=== PATIENT | male | born 1950 | race Caucasian/White ===

== ENCOUNTER 2020-01-07 21:02 | Inpatient (IN) | payer MEDICARE, BC ==
[~2020-01-07] VITALS: Ht 180.3 cm; Wt 81.8 kg
[2020-01-07 21:47] LABS: CLARITY,URINE CLEAR (Clear); COLOR,URINE YELLOW (Yellow); GLUCOSE, URINE NEGATIVE (Neg); KETONES,URINE 40 mg/dl (Neg); LEUKOCYTE ESTERASE ,URINE NEGATIVE (Neg); NITRITES, URINE NEGATIVE (Neg); OCCULT BLOOD,URINE NEGATIVE (Neg); PROTEIN,URINE NEGATIVE (Neg); UROBILINOGEN,URINE 0.2 E.U/dL (0.2-1.0)
[2020-01-07 21:53] LABS: UA COLLECTION TYPE CLN CATCH MIDSTREAM
[2020-01-07 22:15] LABS: BASOPHILS # (AUTO) 0.1 X10'3 (0-0.2); BASOPHILS % (AUTO) 0.3 % (0-1); EOSINOPHILS % (AUTO) 0.1 % (0-6); HEMATOCRIT 47.3 % (42.0-52.0); LYMPHOCYTES # (AUTO) 1.7 X10'3 (1.1-4.8); LYMPHOCYTES % (AUTO) 10.8 % (21-51); MEAN CORPUSCULAR HEMOGLOBIN 32.3 PG (27.0-31.0); MEAN CORPUSCULAR HGB CONC 33.9 g/dL (33.0-36.5); MEAN CORPUSCULAR VOLUME 95.3 FL (78-98); MEAN PLATELET VOLUME 7.8 FL (7.4-10.4); MONOCYTES # (AUTO) 0.7 X10'3 (0-0.9); MONOCYTES % (AUTO) 4.2 % (2-12); NEUTROPHILS # (AUTO) 13.2 X10'3 (1.8-7.7); NEUTROPHILS % (AUTO) 84.6 % (42-75); PLATELET COUNT 244 X10'3 (140-440); RED BLOOD COUNT 4.96 X10'6 (4.70-6.10); RED CELL DISTRIBUTION WIDTH 14.7 % (11.5-14.5); WHITE BLOOD COUNT 15.6 X10'3 (4.5-11.0)
[2020-01-07 22:31] LABS: ALANINE AMINOTRANSFERASE 24 U/L (12-78); ALBUMIN 4.5 G/DL (3.4-5.0); ALBUMIN/GLOBULIN RATIO 1.3 (1.1-1.5); ALKALINE PHOSPHATASE 70 IU/L (46-116); ANION GAP 7 (8-16); ASPARTATE AMINO TRANSFERASE 21 U/L (10-37); BLOOD UREA NITROGEN 12 MG/DL (7-18); BUN/CREATININE RATIO 9.5 (5.4-32.0); CALCIUM 9.8 MG/DL (8.5-10.1); CHLORIDE 102 MMOL/L (99-107); CREATININE 1.26 MG/DL (0.60-1.10); GLUCOSE 128 MG/DL (70-104); LIPASE 210 U/L (73-393); POTASSIUM 3.9 MMOL/L (3.5-5.1); SODIUM 139 MMOL/L (135-145); TOTAL CARBON DIOXIDE 30.3 MMOL/L (24-32); TOTAL PROTEIN 8.1 G/DL (6.4-8.2); eGFR 57 ML/MIN
--- NOTE | 2020-01-08 00:05 | NUR ---
Ultrasound at bedside
[2020-01-08] MEDS ORDERED: ondansetron/PF 4mg/2ml inj IV ONE (00:30)
[2020-01-08] MEDS ORDERED: normal saline 1000ML IV soln IVB ONE (00:30)
[2020-01-08] MEDS: morphine 4 MG/ML inj SYRINge IV PRN ×3 (00:46→06:05)
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
[2020-01-08] MEDS ORDERED: FOLI0.4T14 PO (02:34)
[2020-01-08] MEDS ORDERED: TRAM50TA2 PO (02:34)
[2020-01-08] MEDS ORDERED: DOCU-148 PO (02:34)
[2020-01-08] MEDS ORDERED: METH2.5T PO (02:34)
[2020-01-08] MEDS ORDERED: LEVO75TA56 PO (02:34)
[2020-01-08] MEDS ORDERED: PLEC3TAB PO (02:34)
[2020-01-08] MEDS ORDERED: GOLI50PE (02:34)
[2020-01-08] MEDS ORDERED: VALA500T41 PO (02:34)
[2020-01-08] MEDS ORDERED: PSYL575P22 PO (02:34)
--- NOTE | 2020-01-08 02:36 | NUR ---
DR. ALICEA TALKING WITH PT ABOUT PLAN FOR ADMISSION. PT HAS SBO. DR. WESTON NOW AT BEDSIDE.
[2020-01-08] MEDS ORDERED: morphine 2 MG/ML inj. syringe IV PRN (02:55)
[2020-01-08] MEDS ORDERED: magnesium hydroxide 30ml (MOM) UD suspension PO PRN (02:55)
[2020-01-08] MEDS ORDERED: HYDROcodone/acetaminophen 10/325mg tab PO PRN (02:55)
[2020-01-08] MEDS ORDERED: HYDROcodone/acetaminophen 5mg/325mg tablet PO PRN (02:55)
[2020-01-08] MEDS ORDERED: acetaminophen 325mg tablet PO PRN (02:55)
[2020-01-08] MEDS ORDERED: mag hydrox/Alum hydrox/simeth 30ml oral suspension PO PRN (02:55)
[2020-01-08] MEDS: normal saline 1000ml 1,000 ML IV SCH ×2 (03:18→13:50)
--- NOTE | 2020-01-08 03:28 | NUR ---
18 F NG TUBE PLACED TO LEFT NARE. 400 CC' BROWN WATERY OUTPUT. PT AWAITING IPA. STABLE VS.
--- NOTE | 2020-01-08 04:56 | NUR ---
PLACED ON HOSPITAL BED. AWAITING IPA. VSS. PT JUST UP TO BR TO VOIDE. STEADY GAIT. PT WILL BRING HIM A BAG OF PERSONAL ITEMS IN AM. PAIN IS MINIMAL AND PT REPROTS NO NEED FOR ANY PAIN MEDS.
[2020-01-08] MEDS: ondansetron/PF 4mg/2ml inj IV PRN ×2 (06:05→13:44)
--- NOTE | 2020-01-08 07:19 | NUR ---
RECEIVED REPORT FROM ER
[2020-01-08 07:57] VITALS: BP 128/77
[2020-01-08] MEDS: morphine 2 MG/ML inj. syringe IV PRN ×3 (09:52→17:45)
[2020-01-08 10:00] VITALS: BP 125/76
--- NOTE | 2020-01-08 17:13 | NUR ---
dr castro changed pt ng tube suction from low intermit suction to continuous suction at 80, continue to monitor
[2020-01-08 18:00] VITALS: BP 122/82
--- NOTE | 2020-01-08 18:32 | NUR ---
gave report to margaret silver
[2020-01-08] MEDS: diatr meglu/diatrizoate 30ml oral sol.-(3 dose) bottle PO SCH (21:33)
[2020-01-08 22:00] VITALS: BP 126/79
[2020-01-09] MEDS: normal saline 1000ml 1,000 ML IV SCH ×3 (00:20→20:00)
[2020-01-09 06:00] VITALS: BP 128/79
[2020-01-09] MEDS ORDERED: famotidine/PF 10 mg/ml inj IV ONE (06:00)
[2020-01-09] MEDS ORDERED: ringers solution, lacted 1,000 ML IV ONE (06:00)
[2020-01-09 06:28] LABS: BASOPHILS # (AUTO) 0.1 X10'3 (0-0.2); BASOPHILS % (AUTO) 0.9 % (0-1); EOSINOPHILS # (AUTO) 0.2 X10'3 (0-0.9); EOSINOPHILS % (AUTO) 2.2 % (0-6); HEMATOCRIT 42.1 % (42.0-52.0); HEMOGLOBIN 14.4 g/dl (14.0-17.9); LYMPHOCYTES # (AUTO) 1.5 X10'3 (1.1-4.8); LYMPHOCYTES % (AUTO) 16.1 % (21-51); MEAN CORPUSCULAR HGB CONC 34.3 g/dL (33.0-36.5); MEAN CORPUSCULAR VOLUME 96.2 FL (78-98); MEAN PLATELET VOLUME 7.9 FL (7.4-10.4); MONOCYTES # (AUTO) 0.7 X10'3 (0-0.9); MONOCYTES % (AUTO) 7.4 % (2-12); NEUTROPHILS # (AUTO) 6.9 X10'3 (1.8-7.7); NEUTROPHILS % (AUTO) 73.4 % (42-75); PLATELET COUNT 191 X10'3 (140-440); RED BLOOD COUNT 4.38 X10'6 (4.70-6.10); RED CELL DISTRIBUTION WIDTH 14.5 % (11.5-14.5); WHITE BLOOD COUNT 9.3 X10'3 (4.5-11.0)
--- NOTE | 2020-01-09 06:30 | NUR ---
Problems reprioritized. Patient report given, questions answered & plan of care reviewed with Jacob STOVER.
--- NOTE | 2020-01-09 06:40 | NUR ---
Patient in room ORTHO 4007. I have received report from Jaylin and had the opportunity to ask questions and assume patient care.
[2020-01-09 06:46] LABS: ALBUMIN 3.6 G/DL (3.4-5.0); ANION GAP 8 (8-16); BLOOD UREA NITROGEN 10 MG/DL (7-18); BUN/CREATININE RATIO 8.8 (5.4-32.0); CALCIUM 8.5 MG/DL (8.5-10.1); CHLORIDE 107 MMOL/L (99-107); CREATININE 1.14 MG/DL (0.60-1.10); GLUCOSE 90 MG/DL (70-104); POTASSIUM 3.5 MMOL/L (3.5-5.1); SODIUM 143 MMOL/L (135-145); TOTAL CARBON DIOXIDE 28.5 MMOL/L (24-32); eGFR 64 ML/MIN
[2020-01-09] MEDS ORDERED: diatrozoate meglu/diatrozoate sod (37% iodine) 120ML oral solution PO STA (06:57)
[2020-01-09] MEDS ORDERED: diatr meglu/diatrizoate 30ml oral sol.-(3 dose) bottle PO STA (07:02)
[2020-01-09] MEDS: diatr meglu/diatrizoate 30ml oral sol.-(3 dose) bottle PO SCH ×2 (07:16→21:00)
[2020-01-09 10:00] VITALS: BP 130/65
[2020-01-09 10:01] LABS: PARTIAL THROMBOPLASTIN TIME 28 SECONDS (22-32)
[2020-01-09] MEDS ORDERED: iohexol 300mg/ml 100ml inj. ONE (12:51)
[2020-01-09] MEDS: acetaminophen 325mg tablet PO PRN ×2 (13:51→19:56)
--- NOTE | 2020-01-09 14:25 | NUR ---
DC NG tube. patient tolerated removal well.
--- NOTE | 2020-01-09 18:30 | NUR ---
Problems reprioritized. Patient report given, questions answered & plan of care reviewed with Cinthia.
[2020-01-09 19:00] VITALS: BP 113/66
[2020-01-09] MEDS: pantoprazole 40mg Tablet.DR PO SCH (19:53)
[2020-01-10] VITALS: BP 116/74
[2020-01-10] MEDS: normal saline 1000ml 1,000 ML IV SCH (05:42)
[2020-01-10 06:00] VITALS: BP 112/68
--- NOTE | 2020-01-10 06:46 | NUR ---
Patient in room ORTHO 4008. I have received report from [employer] and had the opportunity to ask questions and assume patient care.
[2020-01-10 06:55] LABS: BASOPHILS % (AUTO) 0.8 % (0-1); EOSINOPHILS # (AUTO) 0.2 X10'3 (0-0.9); EOSINOPHILS % (AUTO) 3.1 % (0-6); HEMATOCRIT 38.8 % (42.0-52.0); HEMOGLOBIN 13.3 g/dl (14.0-17.9); LYMPHOCYTES # (AUTO) 1.6 X10'3 (1.1-4.8); LYMPHOCYTES % (AUTO) 28.6 % (21-51); MEAN CORPUSCULAR HEMOGLOBIN 32.5 PG (27.0-31.0); MEAN CORPUSCULAR HGB CONC 34.2 g/dL (33.0-36.5); MEAN CORPUSCULAR VOLUME 95.1 FL (78-98); MEAN PLATELET VOLUME 7.9 FL (7.4-10.4); MONOCYTES # (AUTO) 0.5 X10'3 (0-0.9); NEUTROPHILS # (AUTO) 3.2 X10'3 (1.8-7.7); NEUTROPHILS % (AUTO) 58.5 % (42-75); PLATELET COUNT 170 X10'3 (140-440); RED BLOOD COUNT 4.08 X10'6 (4.70-6.10); RED CELL DISTRIBUTION WIDTH 14.9 % (11.5-14.5); WHITE BLOOD COUNT 5.4 X10'3 (4.5-11.0)
[2020-01-10 06:59] LABS: ALBUMIN 3.5 G/DL (3.4-5.0); ANION GAP 6 (8-16); BLOOD UREA NITROGEN 6 MG/DL (7-18); BUN/CREATININE RATIO 6.4 (5.4-32.0); CALCIUM 8.5 MG/DL (8.5-10.1); CHLORIDE 109 MMOL/L (99-107); CREATININE 0.94 MG/DL (0.60-1.10); GLUCOSE 85 MG/DL (70-104); POTASSIUM 3.8 MMOL/L (3.5-5.1); SODIUM 143 MMOL/L (135-145); TOTAL CARBON DIOXIDE 28.4 MMOL/L (24-32); eGFR 80 ML/MIN
[2020-01-10] MEDS: pantoprazole 40mg Tablet.DR PO SCH (07:39)
[2020-01-10 10:00] VITALS: BP 107/62
[2020-01-10 10:27] LABS: CANCER ANTIGEN 125 14.8 U/mL (Not Estab.); CARCINOEMBRYONIC ANTIGEN 1.3 ng/mL (0.0-4.7)
[2020-01-10] MEDS ORDERED: PANT-47 PO (12:55)
--- NOTE | 2020-01-10 13:40 | NUR ---
Safe DC. All personal items with patient. Educted patient on new medications and follow up with his doctors.
--- NOTE | 2020-01-13 15:33 | NUR ---
Case Management DC follow up: spoke to pt via telephone. s/p: sbo Reports: "feeling pretty much normal". BM 01/12/20not as narrow, formed, no pain. Continues low residual diet. Denies: acute/continuous CP, emergent SOB, resp distress, N/V, RIVAS, blurry vision, vertigo, syncope episodes, weakness,emergent general pain, abd tenderness/distension, bladder pain, dysuria, polyuria, hematuria, retention, constipation, diarrhea, fever, unexplained bleeding, bruising. Pt stated [facility], "without hesitation, the finest people in any, all departments during my stay; outstanding, nothing more I could have expected, great people. Jacob, RN, Saadia, RN, Khushboo, great people. Pt was emotional when relaying that his of 40 yrs stood outside pt window holding up signs of encouragement, and Dr Chairez came in and walked right to the window looking for her. pt was beyond happy with care received. Verbalizes understanding of s/s that warrant 9-11/ER visit for further evaluation. Verbalizes understanding of new Rx: Protonix, and why prescribed, resumes current Rx, taking as ordered, no ase r/t polypharmacy. Acknowledges need to schedule/keep follow up appts w/ PCPT [facility] 01/20/20. Pt contacted Dr Crespo office weeks ago as PCP referred pt for EGD, Colonoscopy before pt admitted to [facility] for sbo. Pt thought the procedure would have been complete before scheduled follow up w/PCP. Pt is not happy w/Dr Crespo staff not returning calls. Pt will make another attempt today, along w/contacting PCP to update frustrations to not getting call backs to schedule. Verbalizes compliance w/DC aftercare. Needs met, questions answered at DC, no further questions or concerns at this time.
== END 2020-01-10 13:47 | disposition home or self-care (01) | DRG 389 ==
LOC: ER 21:03 → ED HOLD 01-08 02:52 → ORTHO 4S 01-08 07:55
PROVIDERS: ADMIT Internal Medicine; ATTEND Family Medicine
PROC: 0D9670Z Drainage of Stomach with Drainage Device, Via Natural or Artificial Opening (ICD-10-PCS; principal; 2020-01-08)
PROC: BW211ZZ Computerized Tomography (CT Scan) of Abdomen and Pelvis using Low Osmolar Contrast (ICD-10-PCS; 2020-01-09)
DX: K56.609 Unspecified intestinal obstruction, unspecified as to partial versus complete obstruction (principal); N17.9 Acute kidney failure, unspecified; N18.9 Chronic kidney disease, unspecified; K20.9 Esophagitis, unspecified; R68.81 Early satiety; E03.9 Hypothyroidism, unspecified; Z80.8 Family history of malignant neoplasm of other organs or systems; Z79.899 Other long term (current) drug therapy
CPT/HCPCS: 36415; 74176; 74177; 76700; 80048; 80053; 81003; 82378; 83690; 85025; 85610; 85730; 86301; 86304; 87081; 96361; 99285; G0378; J2270; J2405; J3490; J7030; Q9963; Q9967

== ENCOUNTER 2021-04-27 15:53 | Inpatient (IN) | payer MEDICARE, BC ==
[~2021-04-27] VITALS: Ht 182.9 cm; Wt 70.0 kg
[~2021-04-27 15:53] MED LIST: DOCU-148 PO; FOLI0.4T14 PO; GOLI50PE; LEVO75TA56 PO; METH2.5T PO; PANT-47 PO; PLEC3TAB2 PO; PSYL575P22 PO; TRAM50TA2 PO; VALA500T41 PO
[2021-04-27] MEDS ORDERED: acetaminophen 325mg tablet PO STA (16:24)
[2021-04-27] MEDS ORDERED: normal saline 1000ML IV soln IV ONE (16:25)
[2021-04-27 16:43] LABS: BASOPHILS # (AUTO) 0.1 X10'3 (0-0.2); BASOPHILS % (AUTO) 0.4 % (0-1); EOSINOPHILS % (AUTO) 0.2 % (0-6); HEMATOCRIT 36.1 % (42.0-52.0); HEMOGLOBIN 12.3 g/dl (14.0-17.9); LYMPHOCYTES # (AUTO) 0.7 X10'3 (1.1-4.8); LYMPHOCYTES % (AUTO) 4.2 % (21-51); MEAN CORPUSCULAR HEMOGLOBIN 32.3 PG (27.0-31.0); MEAN CORPUSCULAR HGB CONC 34.1 g/dL (33.0-36.5); MEAN CORPUSCULAR VOLUME 94.6 FL (78-98); MEAN PLATELET VOLUME 7.7 FL (7.4-10.4); NEUTROPHILS # (AUTO) 15.2 X10'3 (1.8-7.7); NEUTROPHILS % (AUTO) 89.2 % (42-75); PLATELET COUNT 158 X10'3 (140-440); RED BLOOD COUNT 3.81 X10'6 (4.70-6.10); RED CELL DISTRIBUTION WIDTH 14.1 % (11.5-14.5); WHITE BLOOD COUNT 17.1 X10'3 (4.5-11.0)
[2021-04-27 16:49] LABS: ALANINE AMINOTRANSFERASE 16 U/L (12-78); ALBUMIN 3.4 G/DL (3.4-5.0); ALBUMIN/GLOBULIN RATIO 0.9 (1.1-1.5); ALKALINE PHOSPHATASE 61 IU/L (46-116); ANION GAP 10 (8-16); ASPARTATE AMINO TRANSFERASE 10 U/L (10-37); BLOOD UREA NITROGEN 12 MG/DL (7-18); BUN/CREATININE RATIO 9.7 (5.4-32.0); CHLORIDE 102 MMOL/L (99-107); CREATININE 1.24 MG/DL (0.60-1.10); GLUCOSE 115 MG/DL (70-104); MAGNESIUM 1.9 MG/DL (1.5-2.4); SODIUM 138 MMOL/L (135-145); TOTAL CARBON DIOXIDE 26.4 MMOL/L (24-32); eGFR 58 ML/MIN
[2021-04-27 17:19] LABS: CLARITY,URINE SLIGHTLY CLOUDY (Clear); COLOR,URINE YELLOW (Yellow); GLUCOSE, URINE NEGATIVE (Neg); KETONES,URINE NEGATIVE (Neg); NITRITES, URINE NEGATIVE (Neg); OCCULT BLOOD,URINE MODERATE (Neg); PH,URINE 6.5 (4.8-8.0); PROTEIN,URINE 30 mg/dl (Neg); UA COLLECTION TYPE CLN CATCH MIDSTREAM; UROBILINOGEN,URINE 0.2 E.U/dL (0.2-1.0)
[2021-04-27 17:20] LABS: LEUKOCYTE ESTERASE ,URINE TRACE (Neg)
[2021-04-27 17:25] LABS: WBC,URINE 30-50 /HPF (0-4)
[2021-04-27 17:26] LABS: BACTERIA,URINE 2+ /HPF (Neg); HYALINE CASTS 0-3 /LPF (NEGATIVE); MUCUS STRANDS MODERATE /LPF (Neg); SQUAMOUS EPITHELIAL CELL,UR FEW /LPF (FEW)
[2021-04-27] MEDS ORDERED: CefTRIAXone 2gm/D5W 50ml BAG 50 ML IV ONE (17:30)
[2021-04-27] MEDS ORDERED: iohexol 300mg/ml 100ml inj. ONE (18:28)
[2021-04-27] MEDS ORDERED: diphenhydrAMINE 25mg capsule PO PRN (20:30)
[2021-04-27] MEDS ORDERED: diphenhydrAMINE 50 mg/ml inj IV PRN (20:30)
[2021-04-27] MEDS ORDERED: ondansetron/PF 4mg/2ml inj IV PRN (20:30)
[2021-04-27] MEDS ORDERED: ondansetron 4mg rapidly disintigrating tab PO PRN (20:30)
[2021-04-27] MEDS ORDERED: acetaminophen 650mg rectal suppository RC PRN (20:30)
[2021-04-27] MEDS ORDERED: HYDROcodone/acetaminophen 5mg/325mg tablet PO PRN (20:30)
[2021-04-27] MEDS ORDERED: acetaminophen 325mg tablet PO PRN (20:30)
[2021-04-27] MEDS ORDERED: bisacodyl 10mg suppository rectal RC PRN (20:30)
[2021-04-27] MEDS ORDERED: magnesium hydroxide 30ml (MOM) UD suspension PO PRN (20:30)
[2021-04-27] MEDS ORDERED: morphine 2 MG/ML inj. syringe IV PRN ×2 (20:30)
[2021-04-27] MEDS ORDERED: mag hydrox/Alum hydrox/simeth 30ml oral suspension PO PRN (20:30)
[2021-04-27] MEDS ORDERED: LIDOcaine 2% 10ml TOPICAL JELLY (Urojet) TP ONE (20:35)
[2021-04-27 20:54] LABS: HEMOGLOBIN A1C 4.7 % (4.5-6.2)
[2021-04-27 21:05] LABS: PARTIAL THROMBOPLASTIN TIME 30 SECONDS (22-32)
[2021-04-27 21:10] LABS: CREATINE KINASE 67 U/L (39-308); LIPASE 121 U/L (73-393); PHOSPHORUS 1.7 MG/DL (2.3-4.5)
[2021-04-27] MEDS ORDERED: LEVO88TA7 PO (21:29)
[2021-04-27] MEDS ORDERED: TRAM50TA2 PO (21:29)
[2021-04-27] MEDS ORDERED: METH2.5T55 PO (21:29)
--- NOTE | 2021-04-27 21:45 | NUR ---
Zamorano catheter placed using sterile technique. Minor discomfort noted by patient. Addendum: 04/27/21 at 2159 by AGRIMMER Zamorano catheter placed using sterile technique. Minor discomfort during procedure noted by patient. Once catheter placed, patient appeared relaxed and at ease.
[2021-04-27] MEDS ORDERED: acetaminophen 325mg tablet PO ONE (22:55)
[2021-04-28] MEDS: normal saline 1000ml 1,000 ML IV SCH ×3 (02:05→16:21)
[2021-04-28 03:06] LABS: BASOPHILS # (AUTO) 0.1 X10'3 (0-0.2); BASOPHILS % (AUTO) 0.5 % (0-1); EOSINOPHILS % (AUTO) 0 % (0-6); HEMATOCRIT 33.3 % (42.0-52.0); HEMOGLOBIN 11.5 g/dl (14.0-17.9); LYMPHOCYTES # (AUTO) 1.2 X10'3 (1.1-4.8); LYMPHOCYTES % (AUTO) 6.5 % (21-51); MEAN CORPUSCULAR HEMOGLOBIN 32.7 PG (27.0-31.0); MEAN CORPUSCULAR HGB CONC 34.4 g/dL (33.0-36.5); MEAN CORPUSCULAR VOLUME 94.9 FL (78-98); MEAN PLATELET VOLUME 7.9 FL (7.4-10.4); MONOCYTES # (AUTO) 1.5 X10'3 (0-0.9); MONOCYTES % (AUTO) 8.2 % (2-12); NEUTROPHILS # (AUTO) 15.2 X10'3 (1.8-7.7); NEUTROPHILS % (AUTO) 84.8 % (42-75); PLATELET COUNT 154 X10'3 (140-440); RED BLOOD COUNT 3.51 X10'6 (4.70-6.10); RED CELL DISTRIBUTION WIDTH 14.5 % (11.5-14.5)
[2021-04-28 03:20] LABS: ALANINE AMINOTRANSFERASE 15 U/L (12-78); ALBUMIN/GLOBULIN RATIO 0.9 (1.1-1.5); ALKALINE PHOSPHATASE 62 IU/L (46-116); ANION GAP 9 (8-16); ASPARTATE AMINO TRANSFERASE 16 U/L (10-37); BILIRUBIN,TOTAL 0.9 MG/DL (0.1-1.0); BLOOD UREA NITROGEN 10 MG/DL (7-18); BUN/CREATININE RATIO 8.6 (5.4-32.0); CALCIUM 7.9 MG/DL (8.5-10.1); CHLORIDE 107 MMOL/L (99-107); CHOL/HDL RATIO 2.6 (0.00-4.99); CHOLESTEROL 133 MG/DL (0-200); CREATININE 1.16 MG/DL (0.60-1.10); GLUCOSE 117 MG/DL (70-104); HDL CHOLESTEROL 52 MG/DL (35-60); LDL CHOLESTEROL 64 MG/DL (50-100); POTASSIUM 3.7 MMOL/L (3.5-5.1); SODIUM 140 MMOL/L (135-145); TOTAL CARBON DIOXIDE 23.6 MMOL/L (24-32); TOTAL PROTEIN 6.3 G/DL (6.4-8.2); TRIGLYCERIDES 45 MG/DL (20-135); eGFR 63 ML/MIN
[2021-04-28] MEDS ORDERED: Neutra Phos packet PO PRN (05:25)
[2021-04-28] MEDS ORDERED: sodium phosphate inj. 15 MMOL in dextrose 5%-water 250 ML IV PRN (05:25)
[2021-04-28] MEDS ORDERED: sodium phosphate inj. 30 MMOL in dextrose 5%-water 250 ML IV PRN (05:25)
[2021-04-28] MEDS: heparin, porcine 5000 units/ml vial SQ SCH ×2 (07:38→20:31)
[2021-04-28] MEDS: docusate sod 100mg capsule PO SCH ×2 (07:39→20:36)
[2021-04-28] MEDS: levoTHYROXINE 88mcg tablet PO SCH (07:39)
[2021-04-28] MEDS: pantoprazole 40mg Tablet.DR PO SCH (07:40)
[2021-04-28] MEDS: CefTRIAXone/D5W-Rocephin 1gm 50 ML IV SCH (07:40)
--- NOTE | 2021-04-28 07:52 | NUR ---
[phone] [place], cell [phone]
[2021-04-28] MEDS: valacyclovir 500mg tablet PO SCH ×2 (08:38→20:32)
--- NOTE | 2021-04-28 09:17 | NUR ---
cleaned the bedside commode ,pt has soft large bm twice this am ,no diarrhea.pt sitting up in bed at this time ,eating his breakfast.no temp 97.9 taken before breakfast.
--- NOTE | 2021-04-28 11:43 | NUR ---
Patient in room ED 11. I have received report from Beni STOVER and had the opportunity to ask questions in preparation to assume patient care when pt comes to room 3026A
[2021-04-28] MEDS ORDERED: traMADol 50MG tablet PO PRN (13:00)
[2021-04-28] MEDS: traMADol 50MG tablet PO PRN ×2 (14:01→20:26)
[2021-04-28] MEDS: acetaminophen 325mg tablet PO PRN ×2 (16:18→20:27)
[2021-04-28] MEDS: finasteride 5mg tablet PO SCH (16:20)
[2021-04-28 18:00] VITALS: BP 141/73
--- NOTE | 2021-04-28 18:38 | NUR ---
Problems reprioritized. Patient report given, questions answered & plan of care reviewed with Lisa STOVER. Pt alert, semi fowlers in bed. no s/sx acute disterss
--- NOTE | 2021-04-28 18:54 | NUR ---
pt in bed AAOx4 conversing with his . Pt c/o discomfort due to the way the Zamorano was secured to the leg. Zamorano readjusted and good urnine flow noted. Pt verbalized his medication plan for tonight; will medicate pt accordingly.
[2021-04-28] MEDS: polyethylene glycol 3350 17gm powd pack PO SCH (20:25)
[2021-04-28] MEDS: temazepam 15mg capsule PO PRN (20:25)
[2021-04-28] MEDS: psyllium seed 3.4 gm packet PO SCH (20:25)
[2021-04-28] MEDS: lactobacillus rhamnosus 10,000 MMU CELLS/CAPSULE PO SCH (20:28)
[2021-04-28 22:00] VITALS: BP 90/51
[2021-04-29 03:00] VITALS: BP 90/53
[2021-04-29] MEDS: normal saline 1000ml 1,000 ML IV SCH ×3 (03:00→22:30)
[2021-04-29] MEDS: acetaminophen 325mg tablet PO PRN ×2 (03:43→21:19)
[2021-04-29 06:05] LABS: HEMOGLOBIN 10.7 g/dl (14.0-17.9)
[2021-04-29 06:08] LABS: BASOPHILS % (AUTO) 0.5 % (0-1); EOSINOPHILS # (AUTO) 0.1 X10'3 (0-0.9); EOSINOPHILS % (AUTO) 1.4 % (0-6); LYMPHOCYTES # (AUTO) 1.2 X10'3 (1.1-4.8); LYMPHOCYTES % (AUTO) 11.5 % (21-51); MEAN CORPUSCULAR HEMOGLOBIN 33.8 PG (27.0-31.0); MEAN CORPUSCULAR HGB CONC 35.8 g/dL (33.0-36.5); MEAN CORPUSCULAR VOLUME 94.5 FL (78-98); MEAN PLATELET VOLUME 7.7 FL (7.4-10.4); MONOCYTES # (AUTO) 0.8 X10'3 (0-0.9); MONOCYTES % (AUTO) 8.1 % (2-12); NEUTROPHILS % (AUTO) 78.5 % (42-75); PLATELET COUNT 132 X10'3 (140-440); RED BLOOD COUNT 3.18 X10'6 (4.70-6.10); RED CELL DISTRIBUTION WIDTH 14.6 % (11.5-14.5); WHITE BLOOD COUNT 10.2 X10'3 (4.5-11.0)
[2021-04-29 06:27] LABS: ALANINE AMINOTRANSFERASE 14 U/L (12-78); ALBUMIN 2.4 G/DL (3.4-5.0); ALBUMIN/GLOBULIN RATIO 0.8 (1.1-1.5); ALKALINE PHOSPHATASE 61 IU/L (46-116); ANION GAP 10 (8-16); ASPARTATE AMINO TRANSFERASE 16 U/L (10-37); BILIRUBIN,TOTAL 0.5 MG/DL (0.1-1.0); BLOOD UREA NITROGEN 9 MG/DL (7-18); BUN/CREATININE RATIO 9.3 (5.4-32.0); CALCIUM 7.3 MG/DL (8.5-10.1); CHLORIDE 111 MMOL/L (99-107); CREATININE 0.97 MG/DL (0.60-1.10); GLUCOSE 95 MG/DL (70-104); POTASSIUM 3.1 MMOL/L (3.5-5.1); SODIUM 144 MMOL/L (135-145); TOTAL PROTEIN 5.6 G/DL (6.4-8.2); eGFR 77 ML/MIN
--- NOTE | 2021-04-29 06:30 | NUR ---
Patient in room PCU 3026. I have received report from Lisa STOVER and had the opportunity to ask questions and assume patient care. pt sleeping right sided, no s/sx acute distress.
[2021-04-29 07:00] VITALS: BP 105/61
[2021-04-29] MEDS: levoTHYROXINE 88mcg tablet PO SCH (09:23)
[2021-04-29] MEDS: traMADol 50MG tablet PO PRN ×2 (09:23→18:00)
[2021-04-29] MEDS: docusate sod 100mg capsule PO SCH ×2 (09:23→21:00)
[2021-04-29] MEDS: lactobacillus rhamnosus 10,000 MMU CELLS/CAPSULE PO SCH ×2 (09:23→20:59)
[2021-04-29] MEDS: valacyclovir 500mg tablet PO SCH ×2 (09:23→20:59)
[2021-04-29] MEDS: CefTRIAXone/D5W-Rocephin 1gm 50 ML IV SCH (09:24)
[2021-04-29] MEDS: heparin, porcine 5000 units/ml vial SQ SCH ×2 (09:24→21:00)
[2021-04-29] MEDS: pantoprazole 40mg Tablet.DR PO SCH (09:27)
[2021-04-29 11:00] VITALS: BP 102/65
[2021-04-29] MEDS: finasteride 5mg tablet PO SCH (11:38)
[2021-04-29 15:00] VITALS: BP 120/73
[2021-04-29 18:00] VITALS: BP 132/75
--- NOTE | 2021-04-29 18:50 | NUR ---
Patient in room PCU 3026. I have received report from Lacy STOVER and had the opportunity to ask questions and assume patient care.
--- NOTE | 2021-04-29 19:03 | NUR ---
Problems reprioritized. Patient report given, questions answered & plan of care reviewed with Diana RN and Ariadne RN. pt sitting up eating dinner. no ss/x acute distress.
--- NOTE | 2021-04-29 19:42 | NUR ---
Patient in room PCU 3026. I have received report from ALLA STOVER and had the opportunity to ask questions and assume patient care.
[2021-04-29] MEDS: psyllium seed 3.4 gm packet PO SCH (21:00)
[2021-04-29] MEDS: polyethylene glycol 3350 17gm powd pack PO SCH (21:00)
[2021-04-29] MEDS: temazepam 15mg capsule PO PRN (21:19)
[2021-04-29] MEDS ORDERED: potassium Cl 20 mEq SR tablet PO PRN (22:10)
[2021-04-29] MEDS ORDERED: potassium Cl 40MEQ/1/2NS 520ml 520 ML IV PRN ×2 (22:10)
[2021-04-29] MEDS: potassium Cl 20 mEq SR tablet PO PRN (22:29)
[2021-04-30 02:00] VITALS: BP 107/66
[2021-04-30] MEDS: normal saline 1000ml 1,000 ML IV SCH (02:25)
[2021-04-30] MEDS: potassium Cl 20 mEq SR tablet PO PRN (02:25)
[2021-04-30] MEDS: traMADol 50MG tablet PO PRN ×2 (05:15→12:03)
[2021-04-30 06:00] VITALS: BP 119/68
--- NOTE | 2021-04-30 06:23 | NUR ---
Problems reprioritized. Patient report given, questions answered & plan of care reviewed with Destiny STOVER.
[2021-04-30 07:02] LABS: BASOPHILS % (AUTO) 0.7 % (0-1); EOSINOPHILS # (AUTO) 0.2 X10'3 (0-0.9); EOSINOPHILS % (AUTO) 3.8 % (0-6); HEMATOCRIT 33.4 % (42.0-52.0); HEMOGLOBIN 11.6 g/dl (14.0-17.9); LYMPHOCYTES # (AUTO) 1.2 X10'3 (1.1-4.8); LYMPHOCYTES % (AUTO) 20.3 % (21-51); MEAN CORPUSCULAR HEMOGLOBIN 33.1 PG (27.0-31.0); MEAN CORPUSCULAR HGB CONC 34.6 g/dL (33.0-36.5); MEAN CORPUSCULAR VOLUME 95.7 FL (78-98); MEAN PLATELET VOLUME 7.6 FL (7.4-10.4); MONOCYTES # (AUTO) 0.6 X10'3 (0-0.9); MONOCYTES % (AUTO) 9.9 % (2-12); NEUTROPHILS % (AUTO) 65.3 % (42-75); PLATELET COUNT 170 X10'3 (140-440); RED BLOOD COUNT 3.49 X10'6 (4.70-6.10); RED CELL DISTRIBUTION WIDTH 14.8 % (11.5-14.5); WHITE BLOOD COUNT 6.2 X10'3 (4.5-11.0)
[2021-04-30 07:23] LABS: ALANINE AMINOTRANSFERASE 28 U/L (12-78); ALBUMIN 2.5 G/DL (3.4-5.0); ALBUMIN/GLOBULIN RATIO 0.7 (1.1-1.5); ALKALINE PHOSPHATASE 75 IU/L (46-116); ANION GAP 10 (8-16); ASPARTATE AMINO TRANSFERASE 28 U/L (10-37); BILIRUBIN,TOTAL 0.3 MG/DL (0.1-1.0); BLOOD UREA NITROGEN 6 MG/DL (7-18); BUN/CREATININE RATIO 6.4 (5.4-32.0); CALCIUM 7.7 MG/DL (8.5-10.1); CHLORIDE 112 MMOL/L (99-107); CREATININE 0.94 MG/DL (0.60-1.10); GLUCOSE 88 MG/DL (70-104); POTASSIUM 3.7 MMOL/L (3.5-5.1); SODIUM 146 MMOL/L (135-145); TOTAL CARBON DIOXIDE 24.4 MMOL/L (24-32); eGFR 80 ML/MIN
[2021-04-30] MEDS: valacyclovir 500mg tablet PO SCH (07:50)
[2021-04-30] MEDS: pantoprazole 40mg Tablet.DR PO SCH (07:50)
[2021-04-30] MEDS: levoTHYROXINE 88mcg tablet PO SCH (07:50)
[2021-04-30] MEDS: lactobacillus rhamnosus 10,000 MMU CELLS/CAPSULE PO SCH (07:50)
[2021-04-30] MEDS: docusate sod 100mg capsule PO SCH (07:50)
[2021-04-30] MEDS: heparin, porcine 5000 units/ml vial SQ SCH (07:51)
[2021-04-30] MEDS: CefTRIAXone/D5W-Rocephin 1gm 50 ML IV SCH (07:52)
[2021-04-30] MEDS: finasteride 5mg tablet PO SCH (07:53)
[2021-04-30] MEDS ORDERED: K and/or MAG REPLACEMENT MC SCH (08:00)
[2021-04-30] MEDS ORDERED: LEVO500T90 PO (09:42)
[2021-04-30 11:00] VITALS: BP 109/68
--- NOTE | 2021-04-30 11:27 | NUR ---
PAGER ID: [phone] MESSAGE: [id number] Ratna- Pt needs home prescription for Proscar. Destiny [phone]
--- NOTE | 2021-04-30 12:19 | NUR ---
PAGER ID: [phone] MESSAGE: [id number] Ratna- Pt needs Proscar prescription and instructions for follow up with Dr. Santizo. Destiny [phone]
[2021-04-30] MEDS ORDERED: finasteride 5mg tablet PO SCH (12:20)
--- NOTE | 2021-04-30 14:00 | NUR ---
PAGER ID: [phone] MESSAGE: [id number] Krish Segundo-please call for Clarification of discharge. Destiny [phone]
--- NOTE | 2021-04-30 14:46 | NUR ---
Patient stable for discharge. Prescription for Proscar called into [facility] and antibiotic ready for tow picker. Zamorano catheter education provided to patient and and leg bag attached and secure. PIV removed with catheter intact. All belongings gathered. Patient transferred off unit via wheelchair.
[2021-05-01] MEDS ORDERED: LEVO500T90 PO (18:37)
[2021-05-01] MEDS ORDERED: LEVO88TA39 PO (23:09)
[2021-05-01] MEDS ORDERED: AMOX-441 PO (23:09)
== END 2021-04-30 15:15 | disposition home health service (06) | DRG 872 ==
LOC: ER 15:53 → ED HOLD 20:35 → PCU 3S 04-28 11:55
PROVIDERS: ADMIT Family Medicine; ATTEND Family Medicine
PROC: BW211ZZ Computerized Tomography (CT Scan) of Abdomen and Pelvis using Low Osmolar Contrast (ICD-10-PCS; principal; 2021-04-27)
DX: A41.9 Sepsis, unspecified organism (principal); N39.0 Urinary tract infection, site not specified; D84.821 Immunodeficiency due to drugs; N13.8 Other obstructive and reflux uropathy; M06.9 Rheumatoid arthritis, unspecified; E87.6 Hypokalemia; D64.9 Anemia, unspecified; Z20.822 Contact with and (suspected) exposure to COVID-19; E03.9 Hypothyroidism, unspecified; E83.39 Other disorders of phosphorus metabolism; K21.9 Gastro-esophageal reflux disease without esophagitis; N18.9 Chronic kidney disease, unspecified; K58.1 Irritable bowel syndrome with constipation; N28.1 Cyst of kidney, acquired; N40.1 Benign prostatic hyperplasia with lower urinary tract symptoms; Z79.899 Other long term (current) drug therapy; Z87.891 Personal history of nicotine dependence
CPT/HCPCS: 36415; 70450; 71045; 74177; 80053; 80061; 81001; 82550; 83036; 83605; 83690; 83735; 83880; 84100; 84145; 84443; 84484; 85025; 85610; 85730; 87040; 87077; 87081; 87088; 87186; 87635; 93005; 99285; C9803; G0378; J0696; J1644; J7030; J8610; Q9967

== ENCOUNTER 2021-05-01 18:10 | Inpatient (IN) | payer MEDICARE, BC ==
[~2021-05-01] VITALS: Ht 182.9 cm; Wt 79.5 kg
[~2021-05-01 18:10] MED LIST changes: -DOCU-148 PO; -GOLI50PE; +LEVO500T90 PO; -LEVO75TA56 PO; +LEVO88TA7 PO; -METH2.5T PO; +METH2.5T55 PO; -PANT-47 PO; -PLEC3TAB2 PO; -PSYL575P22 PO
[2021-05-01] MEDS ORDERED: LEVO500T90 PO (18:37)
[2021-05-01 19:35] LABS: BASOPHILS % (AUTO) 0.5 % (0-1); EOSINOPHILS # (AUTO) 0.1 X10'3 (0-0.9); EOSINOPHILS % (AUTO) 0.8 % (0-6); HEMOGLOBIN 12.6 g/dl (14.0-17.9); LYMPHOCYTES # (AUTO) 0.6 X10'3 (1.1-4.8); LYMPHOCYTES % (AUTO) 8.5 % (21-51); MEAN CORPUSCULAR VOLUME 94.2 FL (78-98); MONOCYTES # (AUTO) 0.5 X10'3 (0-0.9); MONOCYTES % (AUTO) 6.9 % (2-12); NEUTROPHILS # (AUTO) 6.4 X10'3 (1.8-7.7); NEUTROPHILS % (AUTO) 83.3 % (42-75); PLATELET COUNT 261 X10'3 (140-440); RED BLOOD COUNT 3.83 X10'6 (4.70-6.10); RED CELL DISTRIBUTION WIDTH 14.7 % (11.5-14.5); WHITE BLOOD COUNT 7.7 X10'3 (4.5-11.0)
[2021-05-01 19:46] LABS: ALANINE AMINOTRANSFERASE 351 U/L (12-78); ALBUMIN 3.1 G/DL (3.4-5.0); ALBUMIN/GLOBULIN RATIO 0.8 (1.1-1.5); ALKALINE PHOSPHATASE 85 IU/L (46-116); ANION GAP 12 (8-16); ASPARTATE AMINO TRANSFERASE 423 U/L (10-37); BILIRUBIN,TOTAL 0.5 MG/DL (0.1-1.0); BLOOD UREA NITROGEN 10 MG/DL (7-18); BUN/CREATININE RATIO 10.1 (5.4-32.0); CALCIUM 8.4 MG/DL (8.5-10.1); CHLORIDE 106 MMOL/L (99-107); CREATININE 0.99 MG/DL (0.60-1.10); GLUCOSE 133 MG/DL (70-104); POTASSIUM 3.9 MMOL/L (3.5-5.1); SODIUM 144 MMOL/L (135-145); TOTAL CARBON DIOXIDE 26.4 MMOL/L (24-32); TOTAL PROTEIN 7.1 G/DL (6.4-8.2); eGFR 75 ML/MIN
[2021-05-01] MEDS ORDERED: ondansetron/PF 4mg/2ml inj IV ONE (21:55)
[2021-05-01] MEDS ORDERED: morphine 4 MG/ML inj SYRINge IV ONE (21:55)
[2021-05-01] MEDS ORDERED: AMOX-441 PO (23:09)
[2021-05-01] MEDS ORDERED: LEVO88TA39 PO (23:09)
[2021-05-01] MEDS: normal saline 1000ml 1,000 ML IV SCH (23:45)
[2021-05-01] MEDS ORDERED: acetaminophen 325mg tablet PO PRN (23:45)
[2021-05-01] MEDS ORDERED: ondansetron/PF 4mg/2ml inj IV PRN (23:45)
[2021-05-01] MEDS ORDERED: magnesium hydroxide 30ml (MOM) UD suspension PO PRN (23:45)
[2021-05-01] MEDS ORDERED: morphine 2 MG/ML inj. syringe IV PRN (23:45)
[2021-05-01] MEDS ORDERED: mag hydrox/Alum hydrox/simeth 30ml oral suspension PO PRN (23:45)
[2021-05-02] MEDS: diatr meglu/diatrizoate 30ml oral sol.-(3 dose) bottle PO SCH ×3 (00:05→10:01)
[2021-05-02] MEDS ORDERED: ALFU10TA10 PO (00:47)
[2021-05-02 05:17] LABS: HEMOGLOBIN 12.2 g/dl (14.0-17.9); WHITE BLOOD COUNT 6.2 X10'3 (4.5-11.0)
[2021-05-02 05:19] LABS: ALANINE AMINOTRANSFERASE 294 U/L (12-78); ALBUMIN 2.9 G/DL (3.4-5.0); ALBUMIN/GLOBULIN RATIO 0.8 (1.1-1.5); ALKALINE PHOSPHATASE 90 IU/L (46-116); ANION GAP 8 (8-16); ASPARTATE AMINO TRANSFERASE 267 U/L (10-37); BASOPHILS % (AUTO) 0.5 % (0-1); BILIRUBIN,TOTAL 0.5 MG/DL (0.1-1.0); BLOOD UREA NITROGEN 8 MG/DL (7-18); BUN/CREATININE RATIO 7.9 (5.4-32.0); CALCIUM 8.3 MG/DL (8.5-10.1); CHLORIDE 108 MMOL/L (99-107); CREATININE 1.01 MG/DL (0.60-1.10); EOSINOPHILS # (AUTO) 0.2 X10'3 (0-0.9); EOSINOPHILS % (AUTO) 2.6 % (0-6); GLUCOSE 97 MG/DL (70-104); HEMATOCRIT 35.2 % (42.0-52.0); LYMPHOCYTES # (AUTO) 1.2 X10'3 (1.1-4.8); LYMPHOCYTES % (AUTO) 20.1 % (21-51); MEAN CORPUSCULAR HEMOGLOBIN 32.9 PG (27.0-31.0); MEAN CORPUSCULAR HGB CONC 34.7 g/dL (33.0-36.5); MEAN CORPUSCULAR VOLUME 94.8 FL (78-98); MONOCYTES # (AUTO) 0.4 X10'3 (0-0.9); NEUTROPHILS # (AUTO) 4.3 X10'3 (1.8-7.7); NEUTROPHILS % (AUTO) 69.8 % (42-75); PLATELET COUNT 256 X10'3 (140-440); POTASSIUM 4.1 MMOL/L (3.5-5.1); RED BLOOD COUNT 3.71 X10'6 (4.70-6.10); RED CELL DISTRIBUTION WIDTH 14.6 % (11.5-14.5); SODIUM 145 MMOL/L (135-145); TOTAL CARBON DIOXIDE 28.8 MMOL/L (24-32); TOTAL PROTEIN 6.5 G/DL (6.4-8.2); eGFR 73 ML/MIN
[2021-05-02] MEDS: docusate sod 100mg capsule PO SCH ×2 (08:00→19:25)
--- NOTE | 2021-05-02 08:20 | NUR ---
Pt arrived to floor
[2021-05-02] MEDS: levoFLOXACIN-Levaquin 500mg/D5 100 ML IV SCH (08:38)
[2021-05-02 08:44] VITALS: BP 128/84
[2021-05-02] MEDS: normal saline 1000ml 1,000 ML IV SCH ×2 (09:45→15:26)
[2021-05-02 11:00] VITALS: BP 121/72
[2021-05-02] MEDS: morphine 2 MG/ML inj. syringe IV PRN ×2 (12:10→18:59)
[2021-05-02] MEDS ORDERED: magnesium citrate 296ml oral solution PO ONE (13:35)
[2021-05-02] MEDS: hydrocort. acetate/pramoxine 10gm bottle RC SCH ×2 (17:02→21:31)
--- NOTE | 2021-05-02 18:32 | NUR ---
Patient in room NAVEEN 348B. I have received report from JOLANTA Keen and had the opportunity to ask questions and assume patient care.
--- NOTE | 2021-05-02 18:52 | NUR ---
Report given to Rosangela STOVER, all questions answered. Pt went on walk with , has had 4 bm's since mag citrate with good outcomes.
[2021-05-02 20:00] VITALS: BP 115/90
[2021-05-03] VITALS: BP 120/73
[2021-05-03] MEDS: normal saline 1000ml 1,000 ML IV SCH (02:55)
[2021-05-03] MEDS: morphine 2 MG/ML inj. syringe IV PRN (02:58)
--- NOTE | 2021-05-03 06:15 | NUR ---
Patient in room NAVEEN 348. I have received report from Rosangela robles and had the opportunity to ask questions and assume patient care.
--- NOTE | 2021-05-03 06:20 | NUR ---
Problems reprioritized. Patient report given, questions answered & plan of care reviewed with JOLANTA Bucio.
[2021-05-03 06:39] LABS: ALANINE AMINOTRANSFERASE 215 U/L (12-78); ALBUMIN 2.8 G/DL (3.4-5.0); ALBUMIN/GLOBULIN RATIO 0.8 (1.1-1.5); ALKALINE PHOSPHATASE 81 IU/L (46-116); ANION GAP 8 (8-16); ASPARTATE AMINO TRANSFERASE 133 U/L (10-37); BILIRUBIN,TOTAL 0.5 MG/DL (0.1-1.0); BLOOD UREA NITROGEN 7 MG/DL (7-18); BUN/CREATININE RATIO 7.9 (5.4-32.0); CALCIUM 7.8 MG/DL (8.5-10.1); CHLORIDE 111 MMOL/L (99-107); CREATININE 0.89 MG/DL (0.60-1.10); GLUCOSE 90 MG/DL (70-104); POTASSIUM 3.8 MMOL/L (3.5-5.1); SODIUM 146 MMOL/L (135-145); TOTAL CARBON DIOXIDE 26.8 MMOL/L (24-32); TOTAL PROTEIN 6.2 G/DL (6.4-8.2); eGFR 85 ML/MIN
[2021-05-03 06:48] LABS: BASOPHILS # (AUTO) 0.1 X10'3 (0-0.2); BASOPHILS % (AUTO) 0.9 % (0-1); EOSINOPHILS # (AUTO) 0.3 X10'3 (0-0.9); EOSINOPHILS % (AUTO) 4.2 % (0-6); HEMATOCRIT 33.5 % (42.0-52.0); HEMOGLOBIN 11.8 g/dl (14.0-17.9); LYMPHOCYTES # (AUTO) 1.7 X10'3 (1.1-4.8); LYMPHOCYTES % (AUTO) 27.5 % (21-51); MEAN CORPUSCULAR HEMOGLOBIN 32.8 PG (27.0-31.0); MEAN CORPUSCULAR HGB CONC 35.2 g/dL (33.0-36.5); MEAN CORPUSCULAR VOLUME 93.4 FL (78-98); MEAN PLATELET VOLUME 6.9 FL (7.4-10.4); MONOCYTES # (AUTO) 0.5 X10'3 (0-0.9); MONOCYTES % (AUTO) 8.1 % (2-12); NEUTROPHILS # (AUTO) 3.7 X10'3 (1.8-7.7); NEUTROPHILS % (AUTO) 59.3 % (42-75); PLATELET COUNT 285 X10'3 (140-440); RED BLOOD COUNT 3.59 X10'6 (4.70-6.10); RED CELL DISTRIBUTION WIDTH 14.7 % (11.5-14.5); WHITE BLOOD COUNT 6.2 X10'3 (4.5-11.0)
[2021-05-03 07:00] VITALS: BP 128/74
[2021-05-03] MEDS: levoFLOXACIN-Levaquin 500mg/D5 100 ML IV SCH (07:58)
[2021-05-03] MEDS: hydrocort. acetate/pramoxine 10gm bottle RC SCH ×2 (07:58→13:21)
[2021-05-03] MEDS: docusate sod 100mg capsule PO SCH (08:00)
[2021-05-03 11:00] VITALS: BP 118/67
[2021-05-03] MEDS ORDERED: magnesium citrate 296ml oral solution PO ONE (12:10)
[2021-05-03] MEDS ORDERED: ibuprofen tablet 400 MG TABLET PO PRN (12:10)
[2021-05-03] MEDS ORDERED: PROCHC RC (13:24)
--- NOTE | 2021-05-03 16:05 | NUR ---
pt is stable, IV is dc and canula intact, all pt belongings taken with pt, i provided additional catheter care info for the pt and to read over if having any further concerns when home. pt was wheeled down to the lobby in a wheelchair and left in a private vehcicle with family.
== END 2021-05-03 16:04 | disposition home health service (06) | DRG 389 ==
LOC: ER 18:11 → ED HOLD 23:43 → SUR 3N 05-02 08:24
PROVIDERS: ADMIT Internal Medicine; ATTEND Family Medicine
DX: K56.609 Unspecified intestinal obstruction, unspecified as to partial versus complete obstruction (principal); N39.0 Urinary tract infection, site not specified; K64.2 Third degree hemorrhoids; K59.00 Constipation, unspecified; E03.9 Hypothyroidism, unspecified; N18.9 Chronic kidney disease, unspecified; R74.01 Elevation of levels of liver transaminase levels; M06.9 Rheumatoid arthritis, unspecified; N40.0 Benign prostatic hyperplasia without lower urinary tract symptoms; K21.9 Gastro-esophageal reflux disease without esophagitis; K58.9 Irritable bowel syndrome, unspecified; Z87.891 Personal history of nicotine dependence; Z79.899 Other long term (current) drug therapy
CPT/HCPCS: 36415; 74176; 80053; 85025; 87081; 96374; 96375; 99285; G0378; J1956; J2270; J2405; J7030; Q9963

== ENCOUNTER 2021-05-13 12:30 | Emergency (ER) | payer MEDICARE, BC ==
[~2021-05-13] VITALS: Ht 180.3 cm; Wt 73.6 kg
[~2021-05-13 12:30] MED LIST changes: +ALFU10TA10 PO; +PROCHC RC
[2021-05-13 13:08] LABS: BASOPHILS # (AUTO) 0.1 X10'3 (0-0.2); BASOPHILS % (AUTO) 0.9 % (0-1); EOSINOPHILS # (AUTO) 0.1 X10'3 (0-0.9); EOSINOPHILS % (AUTO) 0.6 % (0-6); HEMATOCRIT 38.5 % (42.0-52.0); HEMOGLOBIN 13.1 g/dl (14.0-17.9); LYMPHOCYTES # (AUTO) 1.1 X10'3 (1.1-4.8); LYMPHOCYTES % (AUTO) 8.2 % (21-51); MEAN CORPUSCULAR HEMOGLOBIN 32.4 PG (27.0-31.0); MEAN CORPUSCULAR HGB CONC 33.9 g/dL (33.0-36.5); MEAN CORPUSCULAR VOLUME 95.4 FL (78-98); MEAN PLATELET VOLUME 7.5 FL (7.4-10.4); MONOCYTES # (AUTO) 0.6 X10'3 (0-0.9); NEUTROPHILS % (AUTO) 85.3 % (42-75); PLATELET COUNT 319 X10'3 (140-440); RED BLOOD COUNT 4.03 X10'6 (4.70-6.10); WHITE BLOOD COUNT 12.9 X10'3 (4.5-11.0)
[2021-05-13 13:24] LABS: ALANINE AMINOTRANSFERASE 43 U/L (12-78); ALBUMIN 3.5 G/DL (3.4-5.0); ALKALINE PHOSPHATASE 60 IU/L (46-116); ANION GAP 9 (8-16); ASPARTATE AMINO TRANSFERASE 22 U/L (10-37); BILIRUBIN,TOTAL 0.4 MG/DL (0.1-1.0); BLOOD UREA NITROGEN 15 MG/DL (7-18); BUN/CREATININE RATIO 12.9 (5.4-32.0); CALCIUM 8.5 MG/DL (8.5-10.1); CHLORIDE 103 MMOL/L (99-107); CREATININE 1.16 MG/DL (0.60-1.10); GLUCOSE 134 MG/DL (70-104); LIPASE 235 U/L (73-393); POTASSIUM 4.2 MMOL/L (3.5-5.1); SODIUM 140 MMOL/L (135-145); TOTAL CARBON DIOXIDE 28.3 MMOL/L (24-32); eGFR 63 ML/MIN
[2021-05-13] MEDS ORDERED: acetaminophen 325mg tablet PO ONE (13:25)
[2021-05-13 13:52] LABS: CLARITY,URINE SLIGHTLY CLOUDY (Clear); COLOR,URINE YELLOW (Yellow); GLUCOSE, URINE NEGATIVE (Neg); KETONES,URINE NEGATIVE (Neg); LEUKOCYTE ESTERASE ,URINE TRACE (Neg); NITRITES, URINE NEGATIVE (Neg); OCCULT BLOOD,URINE NEGATIVE (Neg); PH,URINE 7.5 (4.8-8.0); PROTEIN,URINE NEGATIVE (Neg); UROBILINOGEN,URINE 0.2 E.U/dL (0.2-1.0)
[2021-05-13 14:05] LABS: UA COLLECTION TYPE FOLEY CATH
[2021-05-13 14:06] LABS: BACTERIA,URINE NONE SEEN /HPF (Neg); RBC,URINE 0-2 /HPF (0-2); SQUAMOUS EPITHELIAL CELL,UR NONE SEEN /LPF (FEW); WBC,URINE 0-4 /HPF (0-4)
[2021-05-13 14:07] LABS: AMORPHOUS PHOSPHATES 1+
[2021-05-13 16:35] VITALS: BP 129/73
== END 2021-05-13 16:37 | disposition home or self-care (01) ==
LOC: ER 12:30
DX: R10.84 Generalized abdominal pain (principal); K59.00 Constipation, unspecified; K21.9 Gastro-esophageal reflux disease without esophagitis; N18.9 Chronic kidney disease, unspecified; Z87.440 Personal history of urinary (tract) infections; Z79.2 Long term (current) use of antibiotics; Z79.899 Other long term (current) drug therapy
CPT/HCPCS: 36415; 74176; 80053; 81001; 83690; 84145; 84484; 85025; 87088; 93005; 99285